=== PATIENT | male | born 1960 | race Caucasian/White ===

== ENCOUNTER 2022-05-18 13:48 | Emergency (ER) | payer OTHER ==
[2022-05-18 13:48] VITALS: BP 123/66
[2022-05-18 14:00] LABS: BASOPHIL % 0.3 % (0.0-0.2); EOSINOPHIL # 0.3 10^3/uL (0.0-0.2); EOSINOPHIL % 2.4 % (0.0-5.0); LYMPHOCYTES % 37.5 % (24.0-44.0); MEAN CORP HGB 29.8 pg (26-34); MONOCYTES # 0.7 10^3/uL (0.3-0.8); MONOCYTES % 5.2 % (5.0-12.0); NEUTROPHIL # 7.5 10^3/uL (1.8-7.7); NEUTROPHILS % 54.2 % (41.0-85.0); PLATELET COUNT 298 10^3/uL (150-400); RED CELL DISTRIBUTION WIDTH 13.1 % (11.5-14.5)
--- NOTE | 2022-05-18 14:23 | ER.PDOC ---
General Chief Complaint: Requesting Medical Care Stated Complaint: CP Time seen by MD: 14:00 Source: patient Exam Limitations: no limitations History of Present Illness Initial Comments Defibrillator went off more than 8 times, Couple of times in the ambulance Timing/Duration: 1-3 hours Severity/Quality: moderate Radiation: no radiation Prior CP/Workup: Cardiac Cath, Echocardiography, Heart Attack Nitro Today/Relief: No Nitro Taken Today Aspirin Today: No Aspirin Today Associated Symptoms: denies symptoms Prior symptoms/Treatment: Similar symptoms previous Allergies: Coded Allergies: cyclobenzaprine (Verified Allergy, Unknown, 05/18/22) piroxicam (Verified Allergy, Unknown, 05/18/22) propoxyphene (Verified Allergy, Unknown, 05/18/22) Reviewed Nursing Reviewed: Vital Signs, Abn. Noted All Other Systems: Reviewed and Negative Physical Exam General Appearance: No Apparent Distress, WD/WN HEENT: PERRL/EOMI, Normal ENT Inspection, TMs Normal, Pharynx Normal Neck: Non-Tender, Full Range of Motion, Supple, Normal Inspection Respiratory: chest non-tender, lungs clear, normal breath sounds, no respiratory distress, no accessory muscle use Cardiovascular: Normal Peripheral Pulses, Regular Rate, Rhythm, No Edema, No Gallop, No JVD, No Murmur Extremities: Normal Range of Motion, Non-Tender, Normal Inspection, No Pedal Edema, No Calf Tenderness, Normal Capillary Refill Neurologic/Psychiatric: room cleaner II-XII NML as Tested, No Motor/Sensory Deficits, Alert, Normal Mood/Affect, Oriented x 3 Skin: Normal Color, Warm/Dry Lymphatic: No Adenopathy Results/Orders Results/Orders Orders - JOAN GAMBOA MD Cbc With Auto Diff (05/18/22 13:53) Comprehensive Metabolic Panel (05/18/22 13:53) Creatine Kinase (05/18/22 13:53) Creatine Kinase Mb (05/18/22 13:53) Probnp B-Type [employer] Technician (05/18/22 13:53) PT (05/18/22 13:53) Partial Thromboplastin Time. (05/18/22 13:53) Xr Chest 1v (05/18/22 13:53) Ekg-Routine (05/18/22 13:53) Troponin I High Sensitivity (05/18/22 13:53) Magnesium (9/10/22 13:53) Laboratory Tests Test 05/18/22 13:50 White Blood Count 13.9 10^3/uL (4.5-11.0) H Red Blood Count 4.60 10^6/uL (4.50-5.90) Hemoglobin 13.7 g/dL (13.9-16.3) L Hematocrit 43.9 % (37.0-53.0) Mean Corpuscular Volume 95.4 fL (78-100) Mean Corpuscular Hemoglobin 29.8 pg (26-34) Mean Corpuscular Hemoglobin Concent 31.2 g/dL (33-36.5) L Red Cell Distribution Width 13.1 % (11.5-14.5) Platelet Count 298 10^3/uL (150-400) Mean Platelet Volume 8.7 fL (7.8-11.0) Neutrophils (%) (Auto) 54.2 % (41.0-85.0) Lymphocytes (%) (Auto) 37.5 % (24.0-44.0) Monocytes (%) (Auto) 5.2 % (5.0-12.0) Neutrophils # (Auto) 7.5 10^3/uL (1.8-7.7) Lymphocytes # (Auto) 5.20 10^3/uL1 (1.0-4.8) H Monocytes # (Auto) 0.7 10^3/uL (0.3-0.8) Absolute Immature Granulocyte (auto 0.05 10^3 u/L (0-2) Absolute Eosinophils (auto) 0.3 10^3/uL (0.0-0.2) H Immature Granulocytes % 0.40 % (0.00-0.50) Eosinophils % 2.4 % (0.0-5.0) Basophils % 0.3 % (0.0-0.2) H Basophils # 0.0 10^3/uL (0.0-0.1) Consult/PCP Time Consult/PCP Called: 15:00 Consult/PCP: DR GLORIA PALMER Departure Time of Disposition: 15:00 Disposition: 04 [facility] Impression: Primary Impression: AICD discharge Condition: Stable Duration or Time Spent with Pa: 12M Return to Work/School Can a patient return to work?: No Can a patient return to school: No JOAN GAMBOA MD May 18, 2022 14:23
--- NOTE | 2022-05-18 14:35 | NUR ---
CRITICAL LAB TROP OF 138 CALLED FROM LAB, READ BACK AND REPORTED TO EDP.
--- NOTE | 2022-05-18 14:40 | DIREP ---
PROCEDURE:CHEST 1 VIEW COMPARISON:None. INDICATIONS:aicd FINDINGS: LUNGS/PLEURA:No significant pulmonary parenchymal abnormalities. No effusions. VASCULATURE:Normal. Unremarkable pulmonary vasculature. CARDIAC:Cardiomegaly. Left-sided AICD device in place. MEDIASTINUM:Normal. No visible mass or adenopathy. BONES:Old healed fracture right clavicle. OTHER:Surgical clips right axillary region. Monitor leads are in place. CONCLUSION:No acute cardiopulmonary abnormalities. Dictated by: Freddy Barcenas M.D. on 05/18/2022 at 02:36 PM
[2022-05-18 14:44] LABS: CARBON DIOXIDE 24.8 mmol/L (20.0-32)
--- NOTE | 2022-05-18 15:03 | PCM.EKG ---
[facility] Test Date: 2022-05-18 Test Time: 13:45:45 Pat Name: MALA BAIN Department: [id number] Room: Gender: M Sap Architect: PALOMA : [id number] Requested By: JOAN GAMBOA Order Number: [id number] Reading MD: Measurements Intervals [place] Rate: 99 P: MS: QRS: -47 QRSD: 118 T: 75 QT: 371 QTc: 477 Interpretive Statements Atrial fibrillation LAD, consider left anterior fascicular block Probable anteroseptal infarct, old Nonspecific T abnormalities, lateral leads No previous ECG available for comparison Please click the below link to view image of tracing.
[2022-05-18 15:04] VITALS: BP 111/72
[2022-05-18] MEDS ORDERED: LOPRESSER IVP STA (16:19)
[2022-05-18] MEDS ORDERED: LOPRESSER ONE (16:20)
[2022-05-18] MEDS ORDERED: NS 1000ML 1,000 ML ONE (16:54)
[2022-05-18 17:07] VITALS: BP 92/62
[2022-05-18] MEDS ORDERED: NS 1000ML 1,000 ML IV ONE (17:30)
== END 2022-05-18 17:45 ==
LOC: ER 13:48 → EDBD 13:48 → ER 17:45
DX: Z95.810 Presence of automatic (implantable) cardiac defibrillator (principal); R11.2 Nausea with vomiting, unspecified
CPT/HCPCS: 99285; 96374; 71045; 96361; 80053; 85025; 36415; 84484; 82553; 83880; 82550; 85610; 85730; 80162; 83735; 93005; J7030; J3490